=== PATIENT | male | born 1965 | race American Indian/Alaskan Native ===

== ENCOUNTER 2021-03-27 13:57 | Emergency (ER) | payer BC ==
[2021-03-27 16:18] VITALS: BP 153/94
--- NOTE | 2021-03-27 16:30 | Emergency Department Report ---
Chief Complaint: Medical Clearance Stated Complaint: SAME TASTE IN MOUTH FROM [employer] Time Seen by Provider: 03/27/21 16:27 - HPI History of Present Illness: 55-year-old male presents to the ER today with complaints of altered taste. Patient states that he went to a [place] restaurant and had some braised chicken 2 weeks ago. He states that since then he has been having the same states that the chicken in his mouth and he can even smell it. He states that he has been brushing his teeth and using Listerine without any relief. He said that even when he is something else he still has that same taste. He states that he has been taking Nexium off and on for reflux disease and he denies any worsening reflux recently. He denies any URI symptoms. He denies any fever or chills. He denies any sore throat, dental pain or oral odor or any other symptoms at th is time. - Exam Vital Signs: Vital Signs 03/27/21 16:17 Temperature 97.2 F L Pulse Rate 56 L Respiratory 18 Rate Blood Pressure 153/94 [Right] O2 Sat by Pulse 97 Oximetry MSE screening note: Focused history and physical exam performed. Due to findings the following was ordered: ED Medical Decision Making - Medical Decision Making 55-year-old male presents to the ER today with complaints of altered taste. Patient states that he went to a [place] restaurant and had some braised chicken 2 weeks ago. He states that since then he has been having the same states that the chicken in his mouth and he can even smell it. He states that he has been brushing his teeth and using Listerine without any relief. He said that even when he is something else he still has that same taste. He states that he has been taking Nexium off and on for reflux disease and he denies any worsening reflux recently. He denies any URI symptoms. He denies any fever or chills. He denies any sore throat, dental pain or oral odor or any other symptoms at this time. Pt is well appearing, not toxic and not in any acute. His mouth oral exam unremarkable. Mucous membranes are moist. He is tolerating restrictions well. No muffled voice and no trismus. He is neurologically intact with a normal gait. At this time patient does not have a medical emergency. He will be given referral to ENT and GI. Patient expressed understanding of instructions and agree with plan. Patient stable at time of discharge. ED Disposition for MSE Clinical Impression: Taste sense altered Disposition: DC-01 TO HOME OR SELFCARE Is pt being admited?: No Does the pt Need Aspirin: No Condition: Stable Additional Instructions: Commend that you try the Biotene mouthwash. Continue taking Nexium at night and you can also take Pepcid or Zantac with it. But most importantly if your symptoms persist follow-up with the ENT and/or the GI specialist listed on your discharge instructions. Return to the ER if your symptoms changes or worsens in any way. Referrals: [facility] [Provider Group] - 3-5 Days (Complaint Specialist) SHANNAN DE LA CRUZ MD [Staff Physician] - 3-5 Days (data integrity specialist) Time of Disposition: 16:29 ED Review of Systems ROS: Stated complaint: SAME TASTE IN MOUTH FROM [employer] Other details as noted in HPI Comment: All other systems reviewed and negative Constitutional: denies: chills, fever ENT: as per HPI, other (Altered sense of taste). denies: throat pain, dental pain, hearing loss, epistaxis, congestion Respiratory: denies: cough, shortness of breath, SOB with exertion, SOB at rest, wheezing Cardiovascular: denies: chest pain, palpitations, dyspnea on exertion, edema, syncope, paroxysmal nocturnal dyspnea Gastrointestinal: denies: abdominal pain, nausea, diarrhea, constipation, hematemesis Genitourinary: denies: urgency, dysuria, frequency, hematuria, discharge, testicular pain, testicular mass Musculoskeletal: denies: back pain, joint swelling, arthralgia Skin: denies: rash, lesions, change in color, change in hair/nails, pruritus Neurological: denies: headache, weakness, numbness, paresthesias, confusion, abnormal gait, vertigo Psychiatric: denies: anxiety, depression, auditory hallucinations, visual hallucinations, homicidal thoughts, suicidal thoughts Hematological/Lymphatic: denies: easy bleeding, easy bruising ED Physical Exam - General Limitations: No Limitations General appearance: alert, in no apparent distress - Head Head exam: Present: atraumatic, normocephalic, normal inspection - Eye Eye exam: Present: normal appearance, PERRL, EOMI Pupils: Present: normal accommodation - ENT ENT exam: Present: normal exam, normal orophraynx, mucous membranes moist - Neck Neck exam: Present: normal inspection, full ROM - Respiratory Respiratory exam: Present: normal lung sounds bilaterally. Absent: respiratory distress - Cardiovascular Cardiovascular Exam: Present: regular rate, normal rhythm, normal heart sounds - Neurological Exam Neurological exam: Present: alert, oriented X3, CN II-XII intact, normal gait - Psychiatric Psychiatric exam: Present: normal affect, normal mood - Skin Skin exam: Present: intact
== END 2021-03-27 17:00 | disposition home or self-care (01) ==
LOC: ED 13:57
DX: R43.8 Other disturbances of smell and taste (principal)
CPT/HCPCS: 99281